=== PATIENT | male | born 1955 | race Caucasian/White ===

== ENCOUNTER 2017-03-26 10:49 | Outpatient (CLI) | payer OTHER ==
[~2017-03-26 10:49] MED LIST: DIOVAN40 MG
== END 2017-03-26 11:09 | disposition home or self-care (01) ==
LOC: NUCLEAR 10:49
DX: I73.9 Peripheral vascular disease, unspecified (principal)

== ENCOUNTER 2020-09-07 10:44 | Emergency (ER) | payer OTHER ==
[~2020-09-07] VITALS: Ht 167.6 cm; Wt 57.2 kg
[2020-09-07] MEDS ORDERED: AMOX-CLAV 875-1 EAC1 PO (17:24)
[2020-09-07] MEDS ORDERED: DICLOFENAC POTA50 MG PO (17:24)
[2020-09-07] MEDS ORDERED: INTESTINEX680 M1 PO (17:24)
== END 2020-09-07 17:51 ==
LOC: ER 10:44
DX: L97.519 Non-pressure chronic ulcer of other part of right foot with unspecified severity (principal)

== ENCOUNTER 2022-07-25 07:07 | Outpatient (CLI) | payer OTHER ==
[~2022-07-25 07:07] MED LIST changes: +AMOX-CLAV 875-1 EAC1 PO; +DICLOFENAC POTA50 MG PO; +INTESTINEX680 M1 PO
== END 2022-07-25 07:09 | disposition home or self-care (01) ==
LOC: NUCLEAR 07:07
PROVIDERS: ATTEND Internal Medicine Cardiovascular Disease
DX: I25.10 Atherosclerotic heart disease of native coronary artery without angina pectoris (principal)

== ENCOUNTER 2022-09-13 08:35 | Outpatient (CLI) | payer OTHER | END 2022-09-13 08:40 | disposition home or self-care (01) | LOC: NUCLEAR 08:35 | PROVIDERS: ATTEND Internal Medicine | DX: I25.10 Atherosclerotic heart disease of native coronary artery without angina pectoris (principal); I11.9 Hypertensive heart disease without heart failure; E78.1 Pure hyperglyceridemia ==

== ENCOUNTER 2022-09-14 09:30 | Outpatient (CLI) | payer OTHER | END 2022-09-14 09:32 | disposition home or self-care (01) | LOC: NUCLEAR 09:30 | PROVIDERS: ATTEND Internal Medicine Cardiovascular Disease | DX: I25.10 Atherosclerotic heart disease of native coronary artery without angina pectoris (principal); I11.9 Hypertensive heart disease without heart failure; E78.2 Mixed hyperlipidemia ==

== ENCOUNTER 2022-09-15 07:57 | Outpatient (CLI) | payer OTHER | END 2022-09-15 07:58 | disposition home or self-care (01) | LOC: NUCLEAR 07:57 | PROVIDERS: ATTEND Internal Medicine | DX: I25.10 Atherosclerotic heart disease of native coronary artery without angina pectoris (principal); I11.9 Hypertensive heart disease without heart failure; E78.1 Pure hyperglyceridemia ==